=== PATIENT | female | born 1990 | race Caucasian/White ===

== ENCOUNTER → 2017-05-30 | Outpatient (CLI) | payer OTHER, BC ==
[~2017-05-30] MED LIST: BCP; MOME15CR TP; PRD5T PO
--- NOTE | 2017-05-30 20:30 | Diagnostic Imaging Report ---
EXAM: Ultrasound of the right breast. INDICATION: Right breast pain COMPARISON: There are no prior studies available for comparison. FINDINGS: There is no discrete solid or cystic mass within the right breast to account for the patient's pain. There is no sign of an abscess either. IMPRESSION: 1. There is no evidence for an acute abnormality of the right breast. There is no sign of malignancy either. Clinical followup is recommended. 2. These results were discussed with Dr. Danuta Garcia. ACR BI-RADS Category 1: Negative. Result letter will be mailed to the patient. Note: At least 10% of breast cancer is not imaged by mammography. Dictated by: Dictated on workstation # [id number]
== END ==
LOC: RAD 12:45
PROVIDERS: ATTEND Nurse Practitioner Family
DX: N64.4 Mastodynia (principal)
CPT/HCPCS: 76641